=== PATIENT | female | born 1950 | race African-American/Black ===

== ENCOUNTER 2018-02-20 11:45 | Emergency (ER) | payer OTHER ==
[~2018-02-20] VITALS: Ht 170.2 cm; Wt 104.3 kg
[~2018-02-20 11:45] MED LIST: ASPIRINA500 MG; ATACAND32 MG; FOLIC ACID0.4 MG; TRAMADOL HCL50 MG
[2018-02-20] MEDS ORDERED: KETO10TA2 PO (15:04)
[2018-02-20] MEDS ORDERED: ATACAND HCT 321 EACH PO (15:04)
[2018-02-20] MEDS ORDERED: NORVASC5 MG PO (15:04)
[2018-02-20] MEDS ORDERED: NORFLEX100MG PO (15:04)
[2018-02-20] MEDS ORDERED: MEDROLPACK PO (15:04)
== END 2018-02-20 15:37 | disposition home or self-care (01) ==
LOC: ER 11:45
DX: M25.552 Pain in left hip (principal); M54.5 Low back pain

== ENCOUNTER 2018-02-22 10:11 | Outpatient (CLI) | payer OTHER ==
[~2018-02-22 10:11] MED LIST changes: +ATACAND HCT 321 EACH PO; +KETO10TA2 PO; +MEDROLPACK PO; +NORFLEX100MG PO; +NORVASC5 MG PO
== END 2018-02-22 11:33 | disposition home or self-care (01) ==
LOC: LAB 10:11
DX: I10 Essential (primary) hypertension (principal); N39.0 Urinary tract infection, site not specified; M54.89 Other dorsalgia; E11.9 Type 2 diabetes mellitus without complications; E55.9 Vitamin D deficiency, unspecified

== ENCOUNTER 2018-03-05 09:33 | Outpatient (CLI) | payer OTHER | END 2018-03-05 15:42 | disposition home or self-care (01) | LOC: TOM 09:33 | DX: R10.84 Generalized abdominal pain (principal) ==